=== PATIENT | female | born 1960 | race Caucasian/White ===

== ENCOUNTER 2021-10-28 12:13 | Outpatient (CLI) | payer OTHER | END 2021-10-28 12:14 | disposition home or self-care (01) | LOC: BICRAD 12:13 | PROVIDERS: ATTEND Family Medicine | DX: R06.02 Shortness of breath (principal) | CPT/HCPCS: 71046 ==

== ENCOUNTER 2023-05-27 08:12 | Observation (INO) | payer OTHER ==
[2023-05-27 09:12] LABS: #Monocytes 0.8 thou/uL (0.11-0.59); #Neutrophils 12.6 thou/uL (1.40-6.50); %Basophils 0.1 % (0.0-1.0); %Eosinophils 0.1 % (0.0-10.0); %Lymphocytes 8.5 % (21.0-51.0); %Monocytes 5.1 % (0.0-10.0); %Neutrophils 85.7 % (42.0-75.0); Hematocrit 40.6 % (36.0-47.0); Hemoglobin 12.9 g/dL (12.0-16.0); Mean Corpuscular HGB CONC 31.8 g/dL (32.0-36.0); Mean Corpuscular Hemoglobin 28.9 pg (27.0-31.0); Mean Corpuscular Volume 90.8 fl (78.0-98.0); Mean Platelet Volume 9.3 fL (7.4-10.4); Platelet Count 360 10x3/uL (130-400); RBC Distribution Width 13.5 % (11.5-14.5); Red Blood Cell (RBC) Count 4.47 mill/uL (4.20-5.40); White Blood Cell (WBC) Count 14.7 10x3/uL (4.8-10.8)
[2023-05-27] MEDS ORDERED: Morphine 4 MG/ML VIAL ONE (09:14)
[2023-05-27] MEDS ORDERED: Ondansetron PF 4 MG/2 ML Vial ONE (09:14)
[2023-05-27 09:40] LABS: ALT (SGPT) 31 U/L (8-55); AST (SGOT) 28 U/L (5-34); Albumin 4.2 g/dL (3.4-4.8); Alkaline Phosphatase 134 U/L (40-110); Anion Gap 12 mmol/L (10-20); BUN (Urea Nitrogen) 11 mg/dL (9.8-20.1); Bilirubin, Total 0.2 mg/dL (0.2-1.2); Calc. Creatinine Clearance 0 mL/min (70-130); Calcium 9.7 mg/dL (7.8-10.44); Carbon Dioxide 29 mmol/L (23-31); Chloride 100 mmol/L (98-107); Estimated GFR 94; Globulin 2.8 g/dL (2.4-3.5); Glucose 126 mg/dL (80-115); Lipase 20 U/L (8-78); Potassium 4.3 mmol/L (3.5-5.1); Sodium 137 mmol/L (136-145)
[2023-05-27] MEDS ORDERED: LevoFLOXacin 500 mg/D5W 100 ML BAG ONE (11:18)
[2023-05-27] MEDS ORDERED: Scopolamine 1.5 mg/72 hour Patch ONE (13:19)
[2023-05-27] MEDS ORDERED: Dextrose 50% Abboject 50 ML SYRINGE SLOW IVP PRN (16:10)
[2023-05-27] MEDS ORDERED: traMADol HCl 50 MG TAB PO PRN (16:10)
[2023-05-27] MEDS ORDERED: HumaLOG 300 UNITS/3 ML VIAL SC PRN (16:10)
[2023-05-27] MEDS ORDERED: Dextrose 5% in Water 1,000 ML IV PRN (16:10)
[2023-05-27] MEDS ORDERED: hydrALAZINE 20 MG/ML VIAL SLOW IVP PRN (16:10)
[2023-05-27] MEDS ORDERED: Glucagon 1 MG/ML KIT IM PRN (16:10)
[2023-05-27] MEDS ORDERED: Ipratropium/Albuterol 3 ML NEB NEB PRN (16:10)
[2023-05-27] MEDS ORDERED: Ondansetron ODT 4 MG TAB PO PRN (16:10)
[2023-05-27] MEDS ORDERED: Ondansetron PF 4 MG/2 ML Vial IVP PRN (16:10)
[2023-05-27] MEDS ORDERED: TETANUS, DIPHTHERIA TOX,ADULT (TDVAX) 0.5 ML VIAL IM ONE (16:10)
[2023-05-27] MEDS ORDERED: Morphine 4 MG/ML VIAL SLOW IVP PRN (16:10)
[2023-05-27] MEDS ORDERED: Ketorolac Tromethamine 30 MG/ML VIAL IVP PRN (16:14)
[2023-05-27] MEDS ORDERED: Scopolamine 1.5 mg/72 hour Patch TD SCH (18:00)
[2023-05-27] MEDS: Famotidine 20 MG TAB PO SCH (19:53)
[2023-05-27 20:10] VITALS: BMI 37.5
[2023-05-27] MEDS ORDERED: traZODone HCl 50 MG TAB PO SCH (21:00)
[2023-05-27] MEDS ORDERED: Loratadine 10 MG TAB PO SCH (21:00)
[2023-05-27] MEDS ORDERED: Atorvastatin Calcium 10 MG TAB PO SCH (21:00)
[2023-05-27] MEDS: Sodium Chloride 0.45% 1,000 ML IV SCH (21:02)
[2023-05-28] MEDS: Sodium Chloride 0.45% 1,000 ML IV SCH ×2 (02:30→17:08)
[2023-05-28] MEDS ORDERED: Sevoflurane 250 ML INH ANEST BOTTLE ONE (06:40)
[2023-05-28] MEDS ORDERED: SUGAMMADEX SODIUM 200 MG/2 ML VIAL ONE (10:12)
[2023-05-28] MEDS ORDERED: fentaNYL PF 100 MCG/2 ML SYRINGE ONE (10:12)
[2023-05-28] MEDS ORDERED: Bupivacaine PF 0.5% 30 ML VIAL ONE (10:13)
[2023-05-28] MEDS ORDERED: EPINEPHrine 1 MG/ML AMP ONE (10:13)
[2023-05-28] MEDS ORDERED: Famotidine/PF 20 mg/2ml Vial ONE (10:13)
[2023-05-28] MEDS ORDERED: Sodium Chloride 0.9% 100 ML ONE (10:24)
[2023-05-28] MEDS ORDERED: CEFAZOLIN 2 GM VIAL ONE (10:24)
[2023-05-28] MEDS ORDERED: PROPOFOL 200 MG/20 ML VIAL ONE (10:39)
[2023-05-28] MEDS ORDERED: Ketorolac Tromethamine 30 MG/ML VIAL ONE (10:39)
[2023-05-28] MEDS ORDERED: Ondansetron PF 4 MG/2 ML Vial ONE (10:39)
[2023-05-28] MEDS ORDERED: Rocuronium Bromide 10 MG/ML (10ML VIAL) ONE (10:39)
[2023-05-28] MEDS ORDERED: Dexamethasone 20 MG/5 ML VIAL ONE (10:39)
[2023-05-28] MEDS ORDERED: Lidocaine 1% PF 5 ML VIAL ONE (10:39)
[2023-05-28] MEDS ORDERED: HYDROmorphone 2 MG/ML VIAL SLOW IVP PRN (11:09)
[2023-05-28] MEDS ORDERED: Ondansetron HCl/PF 4 MG/2 ML Vial IVP PRN (11:09)
[2023-05-28] MEDS ORDERED: LevoFLOXacin 500 mg/D5W 500 MG in Premix Bag 1 BAG IVPB SCH (12:00)
[2023-05-28] MEDS ORDERED: fentaNYL 50 mcg/mL 1 mL Vial ONE (12:07)
[2023-05-28] MEDS: Famotidine 20 MG TAB PO SCH (15:54)
[2023-05-28 16:14] VITALS: BP 150/85; TEMP 97.5
== END 2023-05-28 17:46 | disposition home or self-care (01) ==
LOC: ERS 08:12 → SURG A 12:53 → ERHOLD 16:10 → SURG A 17:28
PROVIDERS: ADMIT Specialist; ATTEND Specialist
PROC: 0FT44ZZ Resection of Gallbladder, Percutaneous Endoscopic Approach (ICD-10-PCS; principal; 2023-05-28)
DX: K80.12 Calculus of gallbladder with acute and chronic cholecystitis without obstruction (principal); E66.01 Morbid (severe) obesity due to excess calories; E11.9 Type 2 diabetes mellitus without complications; E78.00 Pure hypercholesterolemia, unspecified; J45.909 Unspecified asthma, uncomplicated; I10 Essential (primary) hypertension; Z68.34 Body mass index [BMI] 34.0-34.9, adult; Z88.8 Allergy status to other drugs, medicaments and biological substances; Z79.899 Other long term (current) drug therapy; Z98.890 Other specified postprocedural states; Z79.84 Long term (current) use of oral hypoglycemic drugs
CPT/HCPCS: 36416; 71045; 76705; 80053; 83690; 85025; 88304; 93005; 96361; 96365; 96375; C1889; J0171; J1100; J1650; J1885; J1956; J2270; J2405; J2704; J3010; J3490; S0020; S0028